=== PATIENT | female | born 1980 | race Caucasian/White ===

== ENCOUNTER 2018-12-22 17:35 | Observation (INO) ==
[2018-12-22 17:48] VITALS: BMI 19.8
[2018-12-22] MEDS ORDERED: MORPHINE SULFATE INJ 4 MG IM ONE (18:29)
[2018-12-22] MEDS ORDERED: ZOFRAN INJ 4 MG VIAL IM ONE (18:29)
--- NOTE | 2018-12-22 18:31 | ED.ABDFE ---
HPI Time Seen Time Seen by Provider: 12/22/18 18:18 PCP Primary Care Physician: KAITLIN COX HPI Comment HPI Comment: INCREASING ABDOMINAL PAIN TIMES ONE WEEK WITH NAUSEA. HISTORY GASTRIC BY PASS SURGERYAND MULTIPLE ADHESION. NO FEVER. PATIENT PAIN IS 8/10 AND RADIATES TO THE BACK. WORSE TODAY. Complaint Doctors Chief Complaint Comments: 1 WEEK.ABDOMINAL PAIN TIMES ONE WEEK. Chief Complaint:: PT C/O ABD PAIN THAT STARTED TIMES ONE WEEK , PT HAS HAD SEVERAL ABD SURGERIES , PT STATES SHE WAS HAVING RELATIONS AND SHE FELT LIKE SOME THING RIPPED ,BR PT SAW PER PCP ON WEDNESDAY AND AND PT WAS TOLD SHE NEEDED TO BE SEEN BY ER OR A SURGEON,BR Reviewed Nurses Notes Review: Yes Source History Provided: Patient Mode of arrival Mode of Arrival: Ambulatory Timing Onset of Chief Complaint: 12/15/18 Came on: Suddenly Duration Since Onset: Constant Duration: Days Location Location: Diffuse Severity Severity: Severe Quality Quality: Cramping, Sharp and Generalized Context History of: Abdominal surgery Modifying factors Worsening Factors: Exertion Improving Factors: Lying Still Associated signs and symptoms Associated Signs and Symptoms: Nausea and Vomiting PMH PMH Past Medical History: No Past Surgical History: Yes Surgical History: Cholecystectomy Past Surgical History Comment: ABD SURGERY GASTRIC BYPASS, HERNIA , Family History History of Family Medical Conditions: No Social History Does patient currently use any type of tobacco product: Yes Have you used tobacco products in the last 12 months: Yes Type of Tobacco Use: Cigarettes How many years tobacco product used: 20 Does any household member use tobacco: No Alcohol Use: None Do you use any recreational Drugs:: No Lives With: Spouse Lives Where: Home infectious screening In the last 2 months have you had wt loss of >10#?: NO Have you had fever, night sweats or hemotysis?: No Have you traveled outside the country in the last 6 months?: No Isolation: Standard ROS Review of Systems Constitutional: See HPI, Weakness, Fatigue and Loss of Appetite; negative Chills and Fever Eyes: No Symptoms Reported and See HPI; negative Eye Pain and Discharge ENTM: No Symptoms Reported and See HPI; negative Ear Pain, Nose Discharge and Throat Pain Respiratoy: No Symptoms Reported and See HPI; negative Non-Productive Cough, Short of Breath and Wheezing Cardiovascular: No Symptoms Reported, See HPI and Chest Pain; negative Edema and Palpitations Gastrointestinal/Abdominal: See HPI, Abdominal Pain, Nausea and Vomiting; negative Constipation and Diarrhea Genitourinary: No Symptoms Reported and See HPI; negative Dysuria, Frequency and Hematuria Neurological: See HPI and Weakness; negative Headache and Dizziness Musculoskeletal: See HPI and Back Pain Integumentary: No Symptoms Reported and See HPI; negative Change in Color, Rash and Juandice Hematologic/Lymphatic: No Symptoms Reported and See HPI; negative Easy Bleeding, Easy Bruising, Swollen Glands and Lymphadenopathy Endocrine: See HPI and Decreased Appetite; negative Increased Thirst and Increased Urine Psychiatric: No Symptoms Reported and See HPI PE Vital Signs Vitals: Temperature 97.7 F Pulse Rate [Left Brachial] 71 Pulse Rate 64 Respiratory Rate 18 Blood Pressure [Left Arm] 125/87 Blood Pressure 119/83 O2 Sat by Pulse Oximetry 98 General Limitations: No Limitations General Appearance: Alert and In No Apparent Distress Head Head Exam: Normal Inspection, Atraumatic and Normocephalic Eyes Eye exam: Normal Appearance and PERRL; negative Scleral Icterus and Conjunctival Injection ENT ENT Exam: Normal Exam, Normal Oropharynx, Normal External Ear Exam and TM's Normal Bilaterally Neck Neck Exam: Normal Inspection and Trachea Midline; negative Tenderness and Lymphadenopathy Chest Chest Inspection: Symmetric Chest Wall Rise; negative Tenderness Respiratory Respiratory Exam: Normal Lung Sounds Bilat; negative Accessory Muscle Use, Chest Wall Tenderness and Respiratory Distress Respiratory Exam: Bilateral: Clear to Auscultation Cardiovascular Cardiovascular Exam: Regular Rate, Normal Rhythm and Normal Heart Sounds; negative Systolic Murmur and Diastolic Murmur Abdominal Exam Abdominal Exam: Normal Bowel Sounds, Soft and Tenderness Abdominal Tenderness: Diffuse and Moderate Rectal Rectal Exam: Deferred Back Back Exam: Normal Inspection; negative Tenderness, Paraspinal Tenderness and Vertebral Tenderness Extremeties Extremities Exam: Normal Inspection and Normal Capillary Refill; negative Tenderness, Edema and Calf Tenderness External Exam: Female: Deferred : Speculum Exam (Female): Deferred : Bimanual Exam (female): Deferred Neurologic Neurological Exam: Alert, Oriented X3 and CN II-XII Intact; negative Motor Sensory Deficit Skin Skin Exam: Dry MDM Differential Diagnosis Differential Diagnosis- Considerations may include:: Appendicitis, Bowel Obstruction, Cholcystitis, Cholelethiasis, Constipation, Diverticular disease, Gastritus/PUD, Inflammatory BD, Pancreatitis, Urinary tract infection and Urolithiasis COURSE Treatment Treatment: SEE ORDERS. 23:07 : MORPHIN 4MG IM AND ZOFRAN 4MG IM. 23:45 : NS 150CC/HR. Consultation Consultation Comments: RADIOLOGIST CALL WITH POSITIVE EARLY APPENDICITIS. DR. CARD, SURGEON CONTACTED. HE WILL ADMIT FOR APPENDECTOMY. DR. LEACH, TECHNICAL PROGRAMS MANAGER DR WILL ADMIT PATIENT. ADMITTING ORDERS DONE FOR DR. LEACH. Education/Counseling Education/Counseling: Patient Educated On: Diagnosis ROR Labs Reviewed Laboratory Results Reviewed?: Yes Result Diagrams: 12/23/18 05:23 12/23/18 05:23 Laboratory: WBC 6.1 X10^3/uL (3.6-10.0) 12/23/18 05:23 RBC 4.14 X10^6/uL (3.5-5.4) 12/23/18 05:23 Hgb 12.2 g/dL (12.0-16.0) 12/23/18 05:23 Hct 35.8 % (36.0-47.0) L 12/23/18 05:23 MCV 86.5 fL (80.0-100.0) 12/23/18 05:23 MCH 29.4 pg (27.0-34.0) 12/23/18 05:23 MCHC 34.0 g/dL (33.0-35.0) 12/23/18 05:23 RDW 14.4 % (11.6-16.5) 12/23/18 05:23 Plt Count 286 X10^3/uL (150.0-450.0) 12/23/18 05:23 MPV 7.9 fL (7.4-11.0) 12/23/18 05:23 Neut % (Auto) 49.5 % (42.0-75.0) 12/23/18 05:23 Lymph % (Auto) 38.4 % (21.0-51.0) 12/23/18 05:23 [place] % (Auto) 8.9 % (0.0-13.0) 12/23/18 05:23 Eos % (Auto) 2.4 % (0.9-2.9) 12/23/18 05:23 Baso % (Auto) 0.8 % (0.2-1.0) 12/23/18 05:23 Neut # (Auto) 3.0 x10^3/uL (2.2-4.8) 12/23/18 05:23 Lymph # (Auto) 2.3 X10^3/uL (1.3-2.9) 12/23/18 05:23 [place] # (Auto) 0.5 x10^3/uL (0.3-0.8) 12/23/18 05:23 Eos # (Auto) 0.1 x10^3/uL (0.0-0.2) 12/23/18 05:23 Baso # (Auto) 0.0 X10^3/uL (0.0-0.1) 12/23/18 05:23 Absolute Nucleated RBC 0.0 /100WBC 12/23/18 05:23 Sodium 142 mmol/L (136-145) 12/23/18 05:23 Corrected Sodium TNP 12/23/18 05:23 Potassium 3.5 mmol/L (3.5-5.1) 12/23/18 05:23 Chloride 109 mmol/L (98-107) H 12/23/18 05:23 Carbon Dioxide 24.2 mmol/L (21-32) 12/23/18 05:23 BUN 7 mg/dL (7-18) 12/23/18 05:23 Creatinine 0.56 mg/dL (0.55-1.02) 12/23/18 05:23 Est GFR (MDRD) Af Amer > 60 (>60) 12/23/18 05:23 Est GFR (MDRD) Non-Af > 60 (>60) 12/23/18 05:23 Glucose 83 mg/dL (65-99) 12/23/18 05:23 Calcium 8.2 mg/dL (8.5-10.1) L 12/23/18 05:23 Corrected Calcium 9.1 mg/dL (8.5-10.1) 12/23/18 05:23 Total Bilirubin 0.30 mg/dL (0.2-1.0) 12/23/18 05:23 AST 23 Units/L (15-37) 12/23/18 05:23 ALT 16 Units/L (12-78) 12/23/18 05:23 Alkaline Phosphatase 77 Units/L (46-116) 12/23/18 05:23 Total Protein 6.3 g/dL (6.4-8.2) L 12/23/18 05:23 Albumin 2.9 g/dL (3.4-5.0) L 12/23/18 05:23 Globulin 3.4 g/dL (2.5-4.5) 12/23/18 05:23 Albumin/Globulin Ratio 0.9 Ratio (1.1-2.1) L 12/23/18 05:23 Amylase 61 Units/L (25-115) 12/22/18 18:36 Lipase 58 Units/L (73-393) L 12/22/18 18:36 Specimen Type Clean catch urine 12/22/18 18:42 Urine Color Straw (YELLOW) 12/22/18 18:42 Urine Appearance Clear (CLEAR) 12/22/18 18:42 Urine pH 7.0 (5.0 - 8.0) 12/22/18 18:42 Ur Specific [place] 1.005 (1.000-1.030) 12/22/18 18:42 Urine Protein Negative (NEGATIVE) 12/22/18 18:42 Urine Glucose (UA) Negative (NEGATIVE) 12/22/18 18:42 Urine Ketones Negative (NEGATIVE) 12/22/18 18:42 Urine Occult Blood 2+ (NEGATIVE) 12/22/18 18:42 Urine Nitrite Negative (NEGATIVE) 12/22/18 18:42 Urine Bilirubin Negative (NEGATIVE) 12/22/18 18:42 Urine Urobilinogen Normal (NORMAL) 12/22/18 18:42 Ur Leukocyte Esterase Negative (NEGATIVE) 12/22/18 18:42 Urine RBC 0-2 /HPF (NONE SEEN) 12/22/18 18:42 Urine WBC None seen /HPF (NONE SEEN) 12/22/18 18:42 Ur Squamous Epith Cells Few /HPF (NEGATIVE) 12/22/18 18:42 Urine Bacteria Negative /HPF (NEGATIVE) 12/22/18 18:42 Ur Culture Indicated? No/not indicated 12/22/18 18:42 Urine Opiates Screen Negative (NEG=<300) 12/22/18 18:42 Urine Methadone Screen Negative (NEG=<300) 12/22/18 18:42 Ur Barbiturates Screen Negative (NEG=<200) 12/22/18 18:42 Ur Phencyclidine Scrn Negative (NEG=<25) 12/22/18 18:42 Ur Amphetamines Screen Negative (NEG=<1000) 12/22/18 18:42 U Benzodiazepines Scrn Negative (NEG=<200) 12/22/18 18:42 Urine Cocaine Screen Negative (NEG=<300) 12/22/18 18:42 U Marijuana (THC) Screen Negative (NEG=<50) 12/22/18 18:42 Tissue Pathology To follow 12/23/18 11:54 XRAY XRAY Interpreted by: Radiologist XRAY Findings: REPORT ON CHART NOTED AND DISCUSS WITH PATIENT. Opioid Opioid Risk Tool Age (Marcin box if 16-45): Yes Total: 1 Total Score Risk Category: Low Risk Copyright: [facility] predicting aberrant behaviors Diagnosis Discharge Problem: Acute appendicitis Qualifiers: Acute appendicitis type: with localized peritonitis Appendicitis gangrene presence: without gangrene Appendicitis perforation presence: without perforation Appendicitis abscess presence: without abscess Qualified Code(s): K35.30 - Acute appendicitis with localized peritonitis, without perforation or gangrene Abdominal pain Qualifiers: Abdominal location: generalized Qualified Code(s): R10.84 - Generalized abdominal pain Instructions Instructions: Laparoscopic Appendectomy, Adult, Care After, [id number] Forms: Excuse From Work or School
[2018-12-22] MEDS ORDERED: MORPHINE SULFATE INJ 4 MG ONE ×2 (18:36→22:10)
[2018-12-22] MEDS ORDERED: ZOFRAN INJ 4 MG VIAL ONE (18:36)
[2018-12-22 18:44] LABS: BASOPHILS % (AUTO) 0.6 % (0.2-1.0); EOSINOPHILS # (AUTO) 0.1 x10^3/uL (0.0-0.2); EOSINOPHILS % (AUTO) 1.9 % (0.9-2.9); HEMATOCRIT 39.6 % (36.0-47.0); HEMOGLOBIN 13.4 g/dL (12.0-16.0); LYMPHOCYTES # (AUTO) 1.6 X10^3/uL (1.3-2.9); MEAN CORPUSCULAR HEMOGLOBIN 29.4 pg (27.0-34.0); MEAN CORPUSCULAR HGB CONC 33.8 g/dL (33.0-35.0); MEAN CORPUSCULAR VOLUME 87.2 fL (80.0-100.0); MEAN PLATELET VOLUME 7.4 fL (7.4-11.0); MONOCYTES # (AUTO) 0.4 x10^3/uL (0.3-0.8); MONOCYTES % (AUTO) 8.9 % (0.0-13.0); NEUTROPHILS # (AUTO) 2.7 x10^3/uL (2.2-4.8); NEUTROPHILS % (AUTO) 55.6 % (42.0-75.0); PLATELET COUNT 335 X10^3/uL (150.0-450.0); RED BLOOD COUNT 4.54 X10^6/uL (3.5-5.4); RED CELL DISTRIBUTION WIDTH 14.4 % (11.6-16.5); WHITE BLOOD COUNT 4.9 X10^3/uL (3.6-10.0)
[2018-12-22 18:48] LABS: BILIRUBIN,URINE NEGATIVE (NEGATIVE); BLOOD/HEMOGLOBIN,URINE 2+ (NEGATIVE); GLUCOSE, URINE NEGATIVE (NEGATIVE); KETONES,URINE NEGATIVE (NEGATIVE); LEUKOCYTE ESTERASE ,URINE NEGATIVE (NEGATIVE); NITRITES,URINE NEGATIVE (NEGATIVE); PROTEIN,URINE NEGATIVE (NEGATIVE); UROBILINOGEN,URINE NORMAL (NORMAL)
[2018-12-22 18:50] LABS: APPEARANCE,URINE CLEAR (CLEAR); COLOR,URINE STRAW (YELLOW)
[2018-12-22 18:55] LABS: ALANINE AMINOTRANSFERASE 16 Units/L (12-78); ALBUMIN 3.4 g/dL (3.4-5.0); ALKALINE PHOSPHATASE 86 Units/L (46-116); AMYLASE 61 Units/L (25-115); ASPARTATE AMINO TRANSFERASE 16 Units/L (15-37); BLOOD UREA NITROGEN 5 mg/dL (7-18); CALCIUM 8.6 mg/dL (8.5-10.1); CARBON DIOXIDE 29.1 mmol/L (21-32); CHLORIDE 107 mmol/L (98-107); CREATININE 0.72 mg/dL (0.55-1.02); LIPASE 58 Units/L (73-393); SODIUM 142 mmol/L (136-145); TOTAL PROTEIN 7.3 g/dL (6.4-8.2); eGFR NON BLACK RACES > 60 (>60)
[2018-12-22 18:56] LABS: BACTERIA,URINE NEGATIVE /HPF (NEGATIVE); RBC,URINE 0-2 /HPF (NONE SEEN); SQUAMOUS EPITHELIAL CELL,UR FEW /HPF (NEGATIVE)
[2018-12-22] MEDS ORDERED: TORADOL 60 MG VIAL IM ONE (20:03)
[2018-12-22] MEDS ORDERED: TORADOL 60 MG VIAL ONE (20:05)
[2018-12-22] MEDS ORDERED: NS 100 ML IV 100 ML ONE (20:15)
--- NOTE | 2018-12-22 21:14 | CT ---
CT of the abdomen and pelvis with contrast. Technique: Volumetric CT examination of the abdomen pelvis with intravenous contrast. Axial, coronal, and sagittal data sets are submitted. 100 cc of Omnipaque three hundred fifty was administered intravenously. History: Abdominal pain with history of multiple surgeries. Comparison: None. Findings: Visualized lung bases are clear. The gallbladder is surgically absent. Liver, pancreas, spleen, and adrenals are unremarkable. Evaluation for renal calculi is limited due to the late phase of contrast administration. The kidneys enhance symmetrically without solid renal mass. There is no discrete ureteral calculus or hydronephrosis. Urinary bladder is partially decompressed, though grossly unremarkable. There is mild endometrial thickening/fluid, which is likely physiologic. No suspicious adnexal mass identified. Postoperative changes are seen about small bowel. There is no evidence of small bowel obstruction. There is a moderate to large amount of retained fecal material throughout the colon. The appendix is dilated, measuring up to 9 mm in diameter. There is mild periappendiceal fat stranding. There is no free air or abscess. No free fluid or adenopathy. No acute osseous findings. Conclusion: 1. Findings concerning for acute, uncomplicated appendicitis. 2. Other chronic and incidental findings as above. Findings were discussed with Dr. Alexander by phone on 12/22/2018 at 8:12 p.m.. Reported By:
[2018-12-22] MEDS ORDERED: MORPHINE SULFATE INJ 4 MG IVP ONE (22:09)
[2018-12-22] MEDS ORDERED: ZOFRAN INJ 4 MG VIAL IVP PRN (23:07)
[2018-12-22] MEDS ORDERED: NS 1000 ML 1,000 ML ONE (23:37)
[2018-12-22] MEDS: NS 1000 ML 1,000 ML IV SCH (23:45)
[2018-12-23] MEDS: ANCEF VIAL 1 GRAM IVP SCH ×2 (00:15→06:35)
[2018-12-23] MEDS: MORPHINE SULFATE INJ 2 MG INJ IVP PRN ×3 (02:25→08:34)
[2018-12-23 06:37] LABS: BASOPHILS % (AUTO) 0.8 % (0.2-1.0); EOSINOPHILS # (AUTO) 0.1 x10^3/uL (0.0-0.2); EOSINOPHILS % (AUTO) 2.4 % (0.9-2.9); HEMATOCRIT 35.8 % (36.0-47.0); HEMOGLOBIN 12.2 g/dL (12.0-16.0); LYMPHOCYTES # (AUTO) 2.3 X10^3/uL (1.3-2.9); LYMPHOCYTES % (AUTO) 38.4 % (21.0-51.0); MEAN CORPUSCULAR HEMOGLOBIN 29.4 pg (27.0-34.0); MEAN CORPUSCULAR VOLUME 86.5 fL (80.0-100.0); MEAN PLATELET VOLUME 7.9 fL (7.4-11.0); MONOCYTES # (AUTO) 0.5 x10^3/uL (0.3-0.8); MONOCYTES % (AUTO) 8.9 % (0.0-13.0); NEUTROPHILS % (AUTO) 49.5 % (42.0-75.0); PLATELET COUNT 286 X10^3/uL (150.0-450.0); RED BLOOD COUNT 4.14 X10^6/uL (3.5-5.4); RED CELL DISTRIBUTION WIDTH 14.4 % (11.6-16.5); WHITE BLOOD COUNT 6.1 X10^3/uL (3.6-10.0)
[2018-12-23 06:53] LABS: ALANINE AMINOTRANSFERASE 16 Units/L (12-78); ALBUMIN 2.9 g/dL (3.4-5.0); ALKALINE PHOSPHATASE 77 Units/L (46-116); ASPARTATE AMINO TRANSFERASE 23 Units/L (15-37); BLOOD UREA NITROGEN 7 mg/dL (7-18); CALCIUM 8.2 mg/dL (8.5-10.1); CARBON DIOXIDE 24.2 mmol/L (21-32); CHLORIDE 109 mmol/L (98-107); COR CA(FOR HYPOALB) 9.1 mg/dL (8.5-10.1); CREATININE 0.56 mg/dL (0.55-1.02); SODIUM 142 mmol/L (136-145); TOTAL PROTEIN 6.3 g/dL (6.4-8.2); eGFR NON BLACK RACES > 60 (>60)
[2018-12-23] MEDS ORDERED: NS 100 ML IV + SPIKE MINIBAG* 100 ML ONE ×2 (08:15→13:10)
[2018-12-23] MEDS: ZOSYN VIAL 3.375 GRAMS IV SCH ×2 (08:28→14:00)
[2018-12-23] MEDS: NS 1000 ML 1,000 ML IV SCH ×2 (08:29→10:00)
[2018-12-23] MEDS ORDERED: ULTANE GAS ONE (08:43)
[2018-12-23] MEDS ORDERED: ROBINUL ONE (08:43)
[2018-12-23] MEDS ORDERED: NEOSTIGMINE INJ ONE (08:43)
[2018-12-23] MEDS ORDERED: ZOFRAN INJ 4 MG VIAL ONE (08:43)
[2018-12-23] MEDS ORDERED: QUELICIN (OR ANECTINE) ONE (08:43)
[2018-12-23] MEDS ORDERED: NORCURON INJ 10 MG VIAL ONE (08:43)
[2018-12-23] MEDS ORDERED: DIPRIVAN VIAL ONE (08:43)
[2018-12-23] MEDS ORDERED: VERSED ONE (08:43)
[2018-12-23] MEDS ORDERED: TORADOL 30 MG VIAL ONE (08:43)
[2018-12-23] MEDS ORDERED: NS IRRIGATION 3000 ML ONE (09:32)
[2018-12-23] MEDS ORDERED: STERILE WATER IRRIGATION ONE (09:32)
[2018-12-23] MEDS ORDERED: DUONEB 0.5 MG/3 MG NEB ONE (09:52)
[2018-12-23] MEDS ORDERED: PROVENTIL NEB TX 0.083% 2.5MG/ 3ML NEB ONE (10:05)
[2018-12-23] MEDS ORDERED: DILAUDID INJ ONE ×3 (10:05→15:53)
[2018-12-23] MEDS ORDERED: FENTANYL INJ 100 mcg ONE (10:06)
[2018-12-23] MEDS ORDERED: DECADRON INJ ONE (10:06)
[2018-12-23] MEDS ORDERED: LR 1000 ML IV 1,000 ML ONE (10:07)
--- NOTE | 2018-12-23 10:40 | DR.H&P ---
H&P - History & Physical for Day of: H&P Date: 12/22/18 - Chief Complaint Chief Complaint: RLQ PAIN - History of Present Illness History of Present Illness: IS A 38 YEAR OLD PATIENT OF [facility] WHO PRESENTED TO THE ER WITH COMPLAINTS OF RLQ ABDOMINAL PAIN FOR THE PAST WEEK. SHE REPORTS HAVING GASTRIC BYPASS, HERNIA REPAIR, AND CHOLECYSTECTOMY IN THE PAST. SHE REPORTS FEVER AT HOME FOR SEVERAL DAYS. ON ARRIVAL, VITALS WERE 97.0-92-20-97%-126/83. LABS WERE OBTAINED. ABNORMAL LAB VALUES INCLUDE THE FOLLOWING: BUN 5, TOTAL BILI 0.10, LIPASE 58. URINALYSIS UNREMARKABLE. AN ABDOMEN/PELVIS CT WAS OBTAINED AND REVELED: Findings concerning for acute, uncomplicated appendicitis. There is a moderate to large amount of retained fecal material throughout the colon. SHE WAS ADMITTED TO THE HOSPITAL FOR FURTHER EVALUATION AND TREATMENT. WE CONSULTED AND HE PLANS FOR LAPROSCOPIC APPENDECTOMY. OTHERWISE, WE WILL FOLLOW UP WITH AM LABS AND CONTINUE TO MONITOR. - Past Surgical History Surgical History: , Cholecystectomy Additional Surgical History: HERNIA REPAIR, GASTRIC BYPASS - Family History Family Medical History: Diabetes Mellitus, Cancer, Heart Failure, Hypertension - Social History Does patient currently use any type of tobacco product: Yes Have you used tobacco products in the last 12 months: Yes Type of Tobacco Use: Cigarettes How many years tobacco product used: 20 Does any household member use tobacco: Yes Alcohol Use: None Drug Use: None - Medications Home Medications: codeine Allergy (Verified 12/22/18 17:48) Sulfa (Sulfonamide Antibiotics) [SULFA] Allergy (Verified 12/22/18 17:48) CONTINUE taking the following medications omeprazole 1 tab PO DAILY 12/23/18 [History] oxycodone 1 tab PO BID PRN 12/23/18 [History] sucralfate [Carafate] 1 g/day PO ACHS 12/23/18 [History] - Review of Systems Constitutional: Fever Eyes: No Symptoms Reported ENT: No Symptoms Reported Respiratory: No Symptoms Reported Cardiovascular: No Symptoms Reported Gastrointestinal: Nausea, Vomiting, Abdominal Pain, Constipation Genitourinary: No Symptoms Reported Musculoskeletal: No Symptoms Reported Skin: No Symptoms Reported Neurological: No Symptoms Reported - Physical Exam Vital Signs: Temperature 100 F Pulse Rate [Left Brachial] 84 Pulse Rate 92 Respiratory Rate 18 Blood Pressure [Left Arm] 124/78 Blood Pressure 126/83 O2 Sat by Pulse Oximetry 98 Oriented: Normal Eyes: Normal Ear: Normal Nose: Normal Throat: Normal Respiratory: Clear Throughout Cardiovascular: Normal. negative: S3, S4, Murmur : Normal Auscultation: Bowel Sounds: Decreased Palpation: Normal Tenderness: RLQ, Moderate, Rebound, Guarding. negative: Rigidity Skin: Normal Musculoskeletal: Normal Psychiatric: Normal Mood Description: Calm Affect: Normal Speech Pattern: Clear - Assessment/Plan (1) Appendicitis, acute Qualifiers: Acute appendicitis type: unspecified acute appendicitis type Qualified Code(s): K35.80 - Unspecified acute appendicitis Status: Acute Plan: APPENDECTOMY TODAY, PAIN CONTROL, IV ANTIBIOTICS, CONTINUE TO MONITOR (2) Constipation Qualifiers: Constipation type: unspecified constipation type Qualified Code(s): K59.00 - Constipation, unspecified Status: Acute - Allergies Allergies/Adverse Reactions: Allergies Allergy/AdvReac Type Severity Reaction Status Date / Time codeine Allergy Verified 12/22/18 17:48 Sulfa (Sulfonamide Allergy Verified 12/22/18 17:48 Antibiotics) [SULFA]
[2018-12-23] MEDS ORDERED: BACTROBAN TOPICAL OINT ONE (10:58)
[2018-12-23] MEDS ORDERED: BACITRACIN VIAL ONE (10:59)
[2018-12-23] MEDS ORDERED: ZOFRAN INJ 4 MG VIAL IVP PRN (11:58)
[2018-12-23] MEDS ORDERED: BENADRYL INJ 50 MG VIAL IVP PRN (11:58)
[2018-12-23] MEDS ORDERED: REGLAN INJ 10 MG VIAL IVP PRN (11:58)
[2018-12-23] MEDS ORDERED: PHENERGAN INJ 25 MG IM PRN (11:58)
[2018-12-23] MEDS ORDERED: DILAUDID INJ IVP PRN ×2 (11:58→13:07)
[2018-12-23] MEDS: DILAUDID INJ ONE ×2 (12:01→12:11)
[2018-12-23] MEDS ORDERED: D5 1/2 NS 1000 ML 1,000 ML IV SCH (13:08)
[2018-12-23] MEDS ORDERED: D5 1/2 NS 1000 ML 1,000 ML ONE (13:17)
[2018-12-23 16:03] VITALS: BP 125/87
--- NOTE | 2018-12-23 16:25 | OR.GENERIC ---
Post-Op Note Generic - Post-Op Note Operative Report: diagnostic laparoscopy , lysis of adhesions , lap appendectomy . finding extensive abdominal and pelvic adhesions and acute appendicitis . EBL 20cc . Pt did well . on IV ATB and IVF .Ice chips and water .
== END 2018-12-23 16:13 | disposition home or self-care (01) ==
LOC: ICU 17:39 → ER 17:39 → ICU 23:32
PROVIDERS: ADMIT Internal Medicine; ATTEND Internal Medicine
PROC: APPYLAP (ICD-10-PCS; 2018-12-23 11:30)
DX: K59.00 Constipation, unspecified; K35.80 Unspecified acute appendicitis; K66.0 Peritoneal adhesions (postprocedural) (postinfection)
CPT/HCPCS: 36415; 74177; 80053; 80307; 81001; 82150; 83690; 85025; 96365; 96367; 96372; 96374; 99284; A4216; A4217; A4222; J3490; G0378; G0434; J0330; J0690; J1100; J1170; J1885; J2250; J2270; J2405; J2543; J2704; J2710; J3010; J7030; J7050; J7120; J7613; S5010

== ENCOUNTER 2020-07-30 16:42 | Observation (INO) ==
[2020-07-30] MEDS ORDERED: MORPHINE SULFATE INJ 4 MG IVP ONE (17:26)
[2020-07-30] MEDS ORDERED: PEPCID 20 MG IV PREMIX* 20 MG/50 ML BAG IV ONE ×2 (17:26→17:36)
[2020-07-30] MEDS ORDERED: ZOFRAN INJ 4 MG VIAL IVP ONE (17:26)
--- NOTE | 2020-07-30 17:26 | ED.ABDFE ---
HPI Time Seen Time Seen by Provider: 07/30/20 17:22 PCP Primary Care Physician: ADRIANO Adler Doctors Chief Complaint Comments: States went to ER in [place] last week but left before workup completed Chief Complaint:: PT. C/O SEVERE ABDOMINAL PAIN, NAUSEA AND SOUR BELCHING X 1 WEEK. PT. STATES SHE HAS PELVIC ABSCESSES AND HAS TAKEN ANTIBIOTICS. PT. STATES SHE WAS SEN AT [facility] A MONTH AGO AND WAS DIAGNOSED WITH THE ABSCESSES. COVID-19 Coronavirus risk:travel/contact w/high risk person: No Has patient experienced Coronavirus symptoms: No Reviewed Nurses Notes Review: Yes Source History Provided: Patient Mode of arrival Mode of Arrival: Ambulatory Timing Onset of Chief Complaint: 07/23/20 Came on: Gradually Duration Since Onset: Intermittent Location Location: Epigastric Severity Severity: Moderate Quality Quality: Burning and Cramping Context History of: Abdominal surgery Modifying factors Worsening Factors: Nothing Associated signs and symptoms Associated Signs and Symptoms: Nausea and Vomiting PMH PMH Past Medical History: Yes Past Medical History: GERD Past Surgical History: Yes Surgical History: Appendectomy, Cholecystectomy and STEAM CLEANER Surgery Past Surgical History Comment: TUBAL LIGATION, ABDOMINAL HERNIA MESH (REPAIRED TWICE) Family History History of Family Medical Conditions: Yes Family Medical History: Diabetes Mellitus, Cancer, Heart Failure and Hypertension Social History Does patient currently use any type of tobacco product: Yes Have you used tobacco products in the last 12 months: Yes Type of Tobacco Use: Cigarettes Does any household member use tobacco: Yes Alcohol Use: Occasionally Do you use any recreational Drugs:: No Lives With: Family Lives Where: Home Travel Risk Coronavirus risk:travel/contact w/high risk person: No Has patient experienced Coronavirus symptoms: No Infectious screening In the last 2 months have you had wt loss of >10#?: NO Have you had fever, night sweats or hemotysis?: No Have you traveled outside the country in the last 6 months?: No Isolation: Standard ROS Review of Systems Gastrointestinal/Abdominal: Abdominal Pain, Nausea and Vomiting All Other Systems: Reviewed and Negative PE Vital Signs Vitals: Temperature 97.2 F Pulse Rate 137 Respiratory Rate 18 Blood Pressure [Left Arm] 125/87 Blood Pressure 121/79 O2 Sat by Pulse Oximetry 95 General Limitations: No Limitations General Appearance: Alert and In No Apparent Distress Head Head Exam: Normal Inspection Eyes Eye exam: Normal Appearance ENT ENT Exam: Normal Exam Neck Neck Exam: Normal Inspection Chest Chest Inspection: Normal Inspection Respiratory Respiratory Exam: Normal Lung Sounds Bilat Cardiovascular Cardiovascular Exam: Regular Rate Abdominal Exam Abdominal Exam: Normal Inspection, Normal Bowel Sounds and Soft Rectal Rectal Exam: Other (Pt declined) Back Back Exam: Normal Inspection Extremeties Extremities Exam: Normal Inspection Neurologic Neurological Exam: Alert, Oriented X3 and CN II-XII Intact Psychiatric Psychiatric Exam: Normal Affect and Normal Mood Skin Skin Exam: Warm, Dry and Intact COURSE Treatment Treatment: Pain meds; IV fluids; labs; CT scan; admission Reevaluation 1st: Improved Consultation Called: 20:20 Consultation Comments: Dr. Hdz will admit for observation ROR Labs Reviewed Laboratory Results Reviewed?: Yes Result Diagrams: 07/30/20 17:46 07/30/20 17:46 Laboratory: WBC 10.1 X10^3/uL (3.6-10.0) H 07/30/20 17:46 RBC 4.14 X10^6/uL (3.5-5.4) 07/30/20 17:46 Hgb 10.2 g/dL (12.0-16.0) L 07/30/20 17:46 Hct 31.3 % (36.0-47.0) L 07/30/20 17:46 MCV 75.6 fL (80.0-100.0) L 07/30/20 17:46 MCH 24.7 pg (27.0-34.0) L 07/30/20 17:46 MCHC 32.6 g/dL (33.0-35.0) L 07/30/20 17:46 RDW 17.4 % (11.6-16.5) H 07/30/20 17:46 Plt Count 403 X10^3/uL (150.0-450.0) 07/30/20 17:46 Plt Count Comment Cancelled 07/30/20 17:46 MPV 7.7 fL (7.4-11.0) 07/30/20 17:46 Neut % (Auto) 59.4 % (42.0-75.0) 07/30/20 17:46 Lymph % (Auto) 23.9 % (21.0-51.0) 07/30/20 17:46 [place] % (Auto) 13.1 % (0.0-13.0) H 07/30/20 17:46 Eos % (Auto) 2.5 % (0.9-2.9) 07/30/20 17:46 Baso % (Auto) 1.1 % (0.2-1.0) H 07/30/20 17:46 Neut # (Auto) 6.0 x10^3/uL (2.2-4.8) H 07/30/20 17:46 Lymph # (Auto) 2.4 X10^3/uL (1.3-2.9) 07/30/20 17:46 [place] # (Auto) 1.3 x10^3/uL (0.3-0.8) H 07/30/20 17:46 Eos # (Auto) 0.3 x10^3/uL (0.0-0.2) H 07/30/20 17:46 Baso # (Auto) 0.1 X10^3/uL (0.0-0.1) 07/30/20 17:46 Absolute Nucleated RBC 0.0 /100WBC 07/30/20 17:46 Nucleated RBCs Cancelled 07/30/20 17:46 Atypical Lymphocytes Cancelled 07/30/20 17:46 Blast Cells Cancelled 07/30/20 17:46 Smudge Cells Cancelled 07/30/20 17:46 Toxic Granulation Cancelled 07/30/20 17:46 Dohle Bodies Cancelled 07/30/20 17:46 Gayatri Rods Cancelled 07/30/20 17:46 Plt Clumps, EDTA Cancelled 07/30/20 17:46 Giant Platelets Cancelled 07/30/20 17:46 Plt Morphology Comment Cancelled 07/30/20 17:46 RBC Morphology Cancelled 07/30/20 17:46 Dimorphic RBCs Cancelled 07/30/20 17:46 Polychromasia Cancelled 07/30/20 17:46 Hypochromasia Cancelled 07/30/20 17:46 Poikilocytosis Cancelled 07/30/20 17:46 Basophilic Stippling Cancelled 07/30/20 17:46 Anisocytosis Cancelled 07/30/20 17:46 Microcytosis Cancelled 07/30/20 17:46 Macrocytosis Cancelled 07/30/20 17:46 Spherocytes Cancelled 07/30/20 17:46 Pappenheimer Bodies Cancelled 07/30/20 17:46 Sickle Cells Cancelled 07/30/20 17:46 Target Cells Cancelled 07/30/20 17:46 Tear Drop Cells Cancelled 07/30/20 17:46 Ovalocytes Cancelled 07/30/20 17:46 Stomatocytes Cancelled 07/30/20 17:46 Helmet Cells Cancelled 07/30/20 17:46 [place] Bodies Cancelled 07/30/20 17:46 Panther Burn Rings Cancelled 07/30/20 17:46 [place] Cells Cancelled 07/30/20 17:46 Crenated Cell Cancelled 07/30/20 17:46 Acanthocytes (Spur) Cancelled 07/30/20 17:46 Rouleaux Cancelled 07/30/20 17:46 Schistocytes Cancelled 07/30/20 17:46 Sodium 143 mmol/L (136-145) 07/30/20 17:46 Corrected Sodium TNP 07/30/20 17:46 Potassium 3.2 mmol/L (3.5-5.1) L 07/30/20 17:46 Chloride 105 mmol/L (98-107) 07/30/20 17:46 Carbon Dioxide 33.2 mmol/L (21-32) H 07/30/20 17:46 BUN 5 mg/dL (7-18) L 07/30/20 17:46 Creatinine 0.85 mg/dL (0.55-1.02) 07/30/20 17:46 Est GFR (MDRD) Af Amer > 60 (>60) 07/30/20 17:46 Est GFR (MDRD) Non-Af > 60 (>60) 07/30/20 17:46 Glucose 89 mg/dL (65-99) 07/30/20 17:46 Calcium 9.0 mg/dL (8.5-10.1) 07/30/20 17:46 Corrected Calcium 10.2 mg/dL (8.5-10.1) H 07/30/20 17:46 Total Bilirubin 0.10 mg/dL (0.2-1.0) L 07/30/20 17:46 AST 25 Units/L (15-37) 07/30/20 17:46 ALT 34 Units/L (12-78) 07/30/20 17:46 Alkaline Phosphatase 104 Units/L (46-116) 07/30/20 17:46 Total Protein 6.2 g/dL (6.4-8.2) L 07/30/20 17:46 Albumin 2.5 g/dL (3.4-5.0) L 07/30/20 17:46 Globulin 3.7 g/dL (2.5-4.5) 07/30/20 17:46 Albumin/Globulin Ratio 0.7 Ratio (1.1-2.1) L 07/30/20 17:46 Amylase 50 Units/L (25-115) 07/30/20 17:46 Lipase 54 Units/L (73-393) L 07/30/20 17:46 Specimen Type Clean catch urine 07/30/20 17:14 Urine Color Yellow (YELLOW) 07/30/20 17:14 Urine Appearance Hazy (CLEAR) 07/30/20 17:14 Urine pH 6.0 (5.0 - 8.0) 07/30/20 17:14 Ur Specific [place] 1.025 (1.000-1.030) 07/30/20 17:14 Urine Protein 1+ (NEGATIVE) 07/30/20 17:14 Urine Glucose (UA) Negative (NEGATIVE) 07/30/20 17:14 Urine Ketones Negative (NEGATIVE) 07/30/20 17:14 Urine Occult Blood 3+ (NEGATIVE) 07/30/20 17:14 Urine Nitrite Negative (NEGATIVE) 07/30/20 17:14 Urine Bilirubin Negative (NEGATIVE) 07/30/20 17:14 Urine Urobilinogen 1+ (NORMAL) 07/30/20 17:14 Ur Leukocyte Esterase Negative (NEGATIVE) 07/30/20 17:14 Urine RBC 3-5 /HPF (0-3) A 07/30/20 17:14 Urine WBC None seen /HPF (0-5) 07/30/20 17:14 Ur Squamous Epith Cells Negative /HPF (NEGATIVE) 07/30/20 17:14 Urine Bacteria 2+ /HPF (NEGATIVE) 07/30/20 17:14 Ur Culture Indicated? Yes/culture set up 07/30/20 17:14 XRAY XRAY Interpreted by: Radiologist Opioid Opioid Risk Tool Age (Marcin box if 16-45): Yes History of Preadolescent Sexual Abuse: No Total: 1 Total Score Risk Category: Low Risk Copyright: [facility] predicting aberrant behaviors
[2020-07-30] MEDS ORDERED: ZOFRAN INJ 4 MG VIAL ONE (17:36)
[2020-07-30] MEDS ORDERED: MORPHINE SULFATE INJ 4 MG ONE (17:36)
[2020-07-30] MEDS ORDERED: NS 1000 ML 1,000 ML ONE (17:36)
[2020-07-30] MEDS ORDERED: NS 1000 ML 1,000 ML IV ONE (17:53)
[2020-07-30 17:55] LABS: BILIRUBIN,URINE NEGATIVE (NEGATIVE); BLOOD/HEMOGLOBIN,URINE 3+ (NEGATIVE); GLUCOSE, URINE NEGATIVE (NEGATIVE); KETONES,URINE NEGATIVE (NEGATIVE); LEUKOCYTE ESTERASE ,URINE NEGATIVE (NEGATIVE); NITRITES,URINE NEGATIVE (NEGATIVE); PROTEIN,URINE 1+ (NEGATIVE); UROBILINOGEN,URINE 1+ (NORMAL)
[2020-07-30 17:58] LABS: BASOPHILS # (AUTO) 0.1 X10^3/uL (0.0-0.1); BASOPHILS % (AUTO) 1.1 % (0.2-1.0); EOSINOPHILS # (AUTO) 0.3 x10^3/uL (0.0-0.2); EOSINOPHILS % (AUTO) 2.5 % (0.9-2.9); HEMATOCRIT 31.3 % (36.0-47.0); HEMOGLOBIN 10.2 g/dL (12.0-16.0); LYMPHOCYTES # (AUTO) 2.4 X10^3/uL (1.3-2.9); LYMPHOCYTES % (AUTO) 23.9 % (21.0-51.0); MEAN CORPUSCULAR HEMOGLOBIN 24.7 pg (27.0-34.0); MEAN CORPUSCULAR HGB CONC 32.6 g/dL (33.0-35.0); MEAN CORPUSCULAR VOLUME 75.6 fL (80.0-100.0); MEAN PLATELET VOLUME 7.7 fL (7.4-11.0); MONOCYTES # (AUTO) 1.3 x10^3/uL (0.3-0.8); MONOCYTES % (AUTO) 13.1 % (0.0-13.0); NEUTROPHILS % (AUTO) 59.4 % (42.0-75.0); PLATELET COUNT 403 X10^3/uL (150.0-450.0); RED BLOOD COUNT 4.14 X10^6/uL (3.5-5.4); RED CELL DISTRIBUTION WIDTH 17.4 % (11.6-16.5); WHITE BLOOD COUNT 10.1 X10^3/uL (3.6-10.0)
[2020-07-30 18:06] LABS: ALANINE AMINOTRANSFERASE 34 Units/L (12-78); ALBUMIN 2.5 g/dL (3.4-5.0); ALKALINE PHOSPHATASE 104 Units/L (46-116); AMYLASE 50 Units/L (25-115); ASPARTATE AMINO TRANSFERASE 25 Units/L (15-37); BLOOD UREA NITROGEN 5 mg/dL (7-18); CARBON DIOXIDE 33.2 mmol/L (21-32); CHLORIDE 105 mmol/L (98-107); COR CA(FOR HYPOALB) 10.2 mg/dL (8.5-10.1); CREATININE 0.85 mg/dL (0.55-1.02); LIPASE 54 Units/L (73-393); SODIUM 143 mmol/L (136-145); TOTAL PROTEIN 6.2 g/dL (6.4-8.2); eGFR NON BLACK RACES > 60 (>60)
[2020-07-30 18:15] LABS: APPEARANCE,URINE HAZY (CLEAR); COLOR,URINE YELLOW (YELLOW); SQUAMOUS EPITHELIAL CELL,UR NEGATIVE /HPF (NEGATIVE)
[2020-07-30 18:16] LABS: BACTERIA,URINE 2+ /HPF (NEGATIVE)
[2020-07-30] MEDS ORDERED: NS 100 ML IV 100 ML IV ONE (18:34)
--- NOTE | 2020-07-30 19:52 | CT ---
HISTORYPT. C/O SEVERE ABDOMINAL PAIN, NAUSEA AND SOUR BELCHING X 1 WEEK. PT. STATES SHE HAS PELVIC ABSCESSES AND HAS TAKEN ANTIBIOTICS. PT. STATES SHE WAS SEN AT [facility] A MONTH AGO AND WAS DIAGNOSED WITH THE ABSCESSES.STUDYABDOMEN/PELVIS WITH CONCOMPARISONSeptember 2019 and July 25, 2020TECHNIQUEAxial CT images of the abdomen and pelvis were obtained after the administration of IV contrast and reformatted into coronal and sagittal planes for further evaluation. Enteric contrast was also administered.Radiation dose: 406.40 2 mGy-cm total DLPFINDINGSLung bases are clear.Nonspecific diverticulum extending from the left pyloric region of the stomach coursing toward the left upper quadrant measuring roughly 7.5 x 4 cm on coronal image 11.Inflammatory changes surrounding the thickened wall of the neck of the gastric diverticulum.Postsurgical changes to the stomach.Solid visceral organs of the upper abdomen are unremarkable.Status post cholecystectomy without biliary dilatation.Homogeneous enhancement of the kidneys without hydronephrosis or hydroureter.Unremarkable appearance of the urinary bladder.Imaged reproductive structures are unremarkable.Unremarkable appearance of the large and small bowel.No evidence of acute appendicitis.No pneumoperitoneum.No significant fluid collection.No adenopathy.No acute osseous abnormality.IMPRESSIONPostsurgical changes to the stomach with interval development of a 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 The diverticulum was present on the previous exam from July 25, 2020, however, the adjacent edema has developed since that time in the neck of the diverticulum appears slightly more thickened than on the previous exam.Electronically signed by: Simon Marquis (Jul 30, 2020 19:50:35)
[2020-07-30] MEDS ORDERED: ANCEF VIAL 1 GRAM IVP ONE (20:22)
[2020-07-30] MEDS ORDERED: NS 100 ML IV + SPIKE MINIBAG* 100 ML IV ONE (20:51)
[2020-07-30] MEDS ORDERED: ANCEF VIAL 1 GRAM ONE (20:51)
[2020-07-30] MEDS ORDERED: PEPCID 20 MG IV PREMIX* 20 MG/50 ML BAG IV PRN (21:51)
[2020-07-30] MEDS ORDERED: ZOFRAN INJ 4 MG VIAL IVP PRN (21:51)
[2020-07-30] MEDS ORDERED: MORPHINE SULFATE INJ 2 MG INJ ONE (21:55)
[2020-07-30] MEDS: MORPHINE SULFATE INJ 2 MG INJ IVP PRN (22:02)
[2020-07-31 03:09] VITALS: BMI 24.5
[2020-07-31] MEDS ORDERED: ZOFRAN INJ 4 MG VIAL ONE (03:50)
[2020-07-31] MEDS ORDERED: MORPHINE SULFATE INJ 2 MG INJ ONE ×5 (03:50→21:47)
[2020-07-31] MEDS: MORPHINE SULFATE INJ 2 MG INJ IVP PRN ×6 (03:59→21:55)
[2020-07-31] MEDS ORDERED: ANCEF VIAL 1 GRAM ONE ×3 (04:56→19:59)
[2020-07-31] MEDS ORDERED: NS 50 ML IV + SPIKE MINIBAG* 50 ML IV ONE (04:57)
[2020-07-31] MEDS: ANCEF VIAL 1 GRAM IVP SCH ×3 (05:13→21:00)
[2020-07-31 06:30] LABS: BASOPHILS # (AUTO) 0.1 X10^3/uL (0.0-0.1); BASOPHILS % (AUTO) 0.7 % (0.2-1.0); EOSINOPHILS # (AUTO) 0.2 x10^3/uL (0.0-0.2); HEMATOCRIT 28.8 % (36.0-47.0); HEMOGLOBIN 9.3 g/dL (12.0-16.0); LYMPHOCYTES # (AUTO) 1.5 X10^3/uL (1.3-2.9); LYMPHOCYTES % (AUTO) 16.8 % (21.0-51.0); MEAN CORPUSCULAR HEMOGLOBIN 24.4 pg (27.0-34.0); MEAN CORPUSCULAR HGB CONC 32.3 g/dL (33.0-35.0); MEAN CORPUSCULAR VOLUME 75.4 fL (80.0-100.0); MEAN PLATELET VOLUME 7.7 fL (7.4-11.0); MONOCYTES # (AUTO) 0.9 x10^3/uL (0.3-0.8); MONOCYTES % (AUTO) 10.7 % (0.0-13.0); NEUTROPHILS % (AUTO) 69.8 % (42.0-75.0); PLATELET COUNT 369 X10^3/uL (150.0-450.0); RED BLOOD COUNT 3.83 X10^6/uL (3.5-5.4); RED CELL DISTRIBUTION WIDTH 17.3 % (11.6-16.5); WHITE BLOOD COUNT 8.7 X10^3/uL (3.6-10.0)
[2020-07-31 06:57] LABS: ALANINE AMINOTRANSFERASE 27 Units/L (12-78); ALBUMIN 2.3 g/dL (3.4-5.0); ALKALINE PHOSPHATASE 91 Units/L (46-116); ASPARTATE AMINO TRANSFERASE 19 Units/L (15-37); BLOOD UREA NITROGEN 4 mg/dL (7-18); CALCIUM 7.9 mg/dL (8.5-10.1); CARBON DIOXIDE 27.4 mmol/L (21-32); CHLORIDE 107 mmol/L (98-107); COR CA(FOR HYPOALB) 9.3 mg/dL (8.5-10.1); CREATININE 0.73 mg/dL (0.55-1.02); SODIUM 142 mmol/L (136-145); TOTAL PROTEIN 5.7 g/dL (6.4-8.2); eGFR NON BLACK RACES > 60 (>60)
[2020-07-31] MEDS ORDERED: PROTONIX INJ 40 MG VIAL ONE (09:37)
[2020-07-31] MEDS ORDERED: D5 1/2 NS 1000 ML 1,000 ML IV ONE ×3 (09:38→19:59)
[2020-07-31] MEDS: D5 1/2 NS 1000 ML 1,000 ML IV SCH ×3 (09:45→21:56)
[2020-07-31] MEDS: PROTONIX INJ 40 MG VIAL IVP SCH (10:24)
[2020-07-31] MEDS ORDERED: DUONEB 0.5 MG/3 MG (3 mL) NEB ONE ×2 (10:45→10:48)
--- NOTE | 2020-07-31 11:11 | RAD ---
HISTORYABD PAIN, DIVERTICULITIS APPENDIX, GB, TUBAL, HERNIASTUDYKUBCOMPARISONCT abdomen and pelvis 07/30/2020FINDINGSOral contrast from recent CT is present within the colon. No dilated bowel loops or gross free air identified. Cholecystectomy clips overlie the right upper quadrant.IMPRESSIONNo acute abdominal abnormality.Electronically signed by: JOSE G MONTEZ (Jul 31, 2020 11:09:03)
[2020-07-31] MEDS ORDERED: DIPRIVAN VIAL 20 ML ONE (11:22)
[2020-07-31] MEDS ORDERED: PEPCID 20 MG IV PREMIX* 20 MG/50 ML BAG IV ONE (13:13)
[2020-08-01] MEDS: D5 1/2 NS 1000 ML 1,000 ML IV SCH ×3 (01:20→10:44)
[2020-08-01] MEDS ORDERED: MORPHINE SULFATE INJ 2 MG INJ ONE ×3 (01:45→10:38)
[2020-08-01] MEDS: MORPHINE SULFATE INJ 2 MG INJ IVP PRN ×3 (01:49→10:44)
[2020-08-01] MEDS ORDERED: ANCEF VIAL 1 GRAM ONE (04:43)
[2020-08-01] MEDS: ANCEF VIAL 1 GRAM IVP SCH (05:59)
[2020-08-01 06:34] LABS: BASOPHILS # (AUTO) 0.1 X10^3/uL (0.0-0.1); BASOPHILS % (AUTO) 0.8 % (0.2-1.0); EOSINOPHILS # (AUTO) 0.1 x10^3/uL (0.0-0.2); EOSINOPHILS % (AUTO) 1.1 % (0.9-2.9); HEMATOCRIT 27.7 % (36.0-47.0); HEMOGLOBIN 9.2 g/dL (12.0-16.0); LYMPHOCYTES # (AUTO) 1.4 X10^3/uL (1.3-2.9); LYMPHOCYTES % (AUTO) 21.7 % (21.0-51.0); MEAN CORPUSCULAR HEMOGLOBIN 24.8 pg (27.0-34.0); MEAN CORPUSCULAR HGB CONC 33.3 g/dL (33.0-35.0); MEAN CORPUSCULAR VOLUME 74.5 fL (80.0-100.0); MEAN PLATELET VOLUME 7.6 fL (7.4-11.0); MONOCYTES # (AUTO) 0.7 x10^3/uL (0.3-0.8); MONOCYTES % (AUTO) 11.6 % (0.0-13.0); NEUTROPHILS # (AUTO) 4.2 x10^3/uL (2.2-4.8); NEUTROPHILS % (AUTO) 64.8 % (42.0-75.0); PLATELET COUNT 348 X10^3/uL (150.0-450.0); RED BLOOD COUNT 3.72 X10^6/uL (3.5-5.4); RED CELL DISTRIBUTION WIDTH 17.3 % (11.6-16.5); WHITE BLOOD COUNT 6.4 X10^3/uL (3.6-10.0)
[2020-08-01 06:54] LABS: ALANINE AMINOTRANSFERASE 21 Units/L (12-78); ALBUMIN 2.2 g/dL (3.4-5.0); ALKALINE PHOSPHATASE 83 Units/L (46-116); ASPARTATE AMINO TRANSFERASE 18 Units/L (15-37); BLOOD UREA NITROGEN 2 mg/dL (7-18); CALCIUM 7.9 mg/dL (8.5-10.1); CARBON DIOXIDE 25.6 mmol/L (21-32); CHLORIDE 108 mmol/L (98-107); COR CA(FOR HYPOALB) 9.3 mg/dL (8.5-10.1); COR NA(FOR HYPERGLY) 143 mmol/L (136-145); SODIUM 143 mmol/L (136-145); TOTAL PROTEIN 5.9 g/dL (6.4-8.2); eGFR NON BLACK RACES > 60 (>60)
[2020-08-01 07:02] LABS: ANISOCYTOSIS SLIGHT; HYPOCHROMASIA SLIGHT; PLATELET MORPHOLOGY COMMENT NORMAL (NORMAL)
[2020-08-01] MEDS ORDERED: POTASSIUM CHL 40 MEQ/NS 0.45% 500 ML IV PRN (07:29)
[2020-08-01] MEDS ORDERED: KLOR-CON PO PRN (07:29)
[2020-08-01] MEDS ORDERED: POTASSIUM CHLORIDE LIQ 20 MEQ UDC PO PRN (07:29)
[2020-08-01] MEDS ORDERED: MICRO K EXTEN CAP 10 MEQ PO PRN (07:29)
[2020-08-01] MEDS ORDERED: K-DUR TAB 20 MEQ PO PRN (07:29)
[2020-08-01] MEDS ORDERED: K-RIDER 10 MEQ/NS 100 ML 10 MEQ/100 ML BAG IV PRN (07:29)
[2020-08-01] MEDS ORDERED: POTASSIUM CHL 60 MEQ/NS 0.45% 500 ML IV PRN (07:29)
[2020-08-01] MEDS ORDERED: KLOR-CON ONE (07:55)
[2020-08-01] MEDS ORDERED: NS 1000 ML 1,000 ML ONE (07:58)
[2020-08-01] MEDS ORDERED: D5 1/2 NS 1000 ML 1,000 ML IV ONE (08:10)
[2020-08-01] MEDS: PROTONIX INJ 40 MG VIAL IVP SCH (09:00)
[2020-08-01 12:05] VITALS: BP 118/72
== END 2020-08-01 12:30 | disposition home or self-care (01) ==
LOC: MED/SURG 16:48 → ER 16:48 → MED/SURG 23:25
PROVIDERS: ADMIT Surgery; ATTEND Surgery
DX: Z93.4 Other artificial openings of gastrointestinal tract status; K44.9 Diaphragmatic hernia without obstruction or gangrene; E87.6 Hypokalemia; Z72.0 Tobacco use; K21.9 Gastro-esophageal reflux disease without esophagitis; R11.2 Nausea with vomiting, unspecified; R10.84 Generalized abdominal pain; K57.10 Diverticulosis of small intestine without perforation or abscess without bleeding; K29.80 Duodenitis without bleeding; Z98.0 Intestinal bypass and anastomosis status; Z20.822 Contact with and (suspected) exposure to COVID-19